=== PATIENT | female | born 1980 | race Caucasian/White ===

== ENCOUNTER 2016-12-10 15:18 | Emergency (ER) | payer OTHER ==
[2016-12-10 15:28] VITALS: BP 131/78; PULSE 82; RESP 15; TEMP 97.5; O2SAT 95
--- NOTE | 2016-12-10 15:52 | UCPHY ---
H & P Time Seen by Provider: 12/10/16 15:42 Patient Type: New HPI/ROS: CHIEF COMPLAINT: dizziness HISTORY OF PRESENT ILLNESS: Patient is a 36-year-old female with a history of anxiety and insomnia presents to urgent care with dizziness. The patient states she was recently in [facility] for alcohol detox. She started and abuse 9-10 days ago. She has been taking this regularly. Since starting the medication she has felt intermittently dizzy. She feels as though the room is spinning. It is worse when she moves her head. She has no tenderness or hearing loss. She denies headaches or neck pain. No recent trauma or fall. No fevers or chills. No focal weakness or numbness. Patient uses marijuana intermittently. She does not use alcohol currently. REVIEW OF SYSTEMS: My complete review of systems is negative except as mentioned in the HPI. Past Medical/Surgical History: Anxiety, insomnia Past surgical history: Denies Social history: The patient vapes." She uses THC intermittently. The recent detox from alcohol. Smoking Status: Current some day smoker Physical Exam: Vitals noted GENERAL: Well-appearing, in no acute distress, alert. HEENT: Eyes normal to inspection, PERRLA, extraocular movements intact, normal pharynx, no signs of dehydration. No nystagmus NECK: No thyromegaly, no lymphadenopathy, supple. RESPIRATORY: Clear to auscultation bilaterally, no rales, rhonchi or wheezing. CVS: Regular rate and rhythm, no rubs, murmurs, or gallops. ABDOMEN: Soft. SKIN: Normal color, no rash, warm, dry. No pallor. EXTREMITIES: Normal. NEURO/PSYCH: Higher functions: Alert and Oriented x3. Normal speech and cognition. Normal mood and affect. Cranial nerves: Normal as tested. Cerebellar: Normal as tested. Good finger to nose, good [id number], normal gait. Peripheral exam: Normal motor exam. Normal sensation. Normal reflexes. Constitutional: Initial Vital Signs Temperature (C) 36.4 C 12/10/16 15:22 Heart Rate 82 12/10/16 15:22 Respiratory Rate 15 12/10/16 15:22 Blood Pressure 131/78 H 12/10/16 15:22 O2 Sat (%) 95 12/10/16 15:22 O2 Delivery Mode Room Air Allergies/Adverse Reactions: lithium Allergy (Verified 12/10/16 15:28) Home Medications: Medication Instructions Recorded ANTABUSE 12/10/16 Clonidine 12/10/16 Fish Oil 12/10/16 Lexapro 12/10/16 Meclizine HCl [Meclizine HCl 25 mg 25 mg PO TID #11 tab 12/10/16 (RX,OTC)] Neurontin 12/10/16 Seroquel 12/10/16 Medical Decision Making ED Course/Re-evaluation: In urgent care discussed possible etiologies with the patient. I answered all her questions. The patient will continue her medications as directed. She will be given a prescription for meclizine. She is given warnings prior to leaving. She will return with worsening symptoms. Differential Diagnosis: My differential includes but is not limited to peripheral vertigo, central vertigo, malignancy, mass, dissection, aneurysm, medication reaction Departure - Departure Disposition: Home, Routine, Self-Care Clinical Impression: Dizziness Condition: Good Instructions: Dizziness (ED) Additional Instructions: Continue taking medications as directed. Your been prescribed meclizine to help with her dizziness. If you develop a headache, nausea, weakness, numbness , visual change or any other concerns return to the emergency department. Referrals: Allison Griffin DO [Primary Care Provider] - 3-4 days, if not improved Prescriptions: Meclizine HCl [Meclizine HCl 25 mg (RX,OTC)] 25 mg PO TID #11 tab - PQRS PQRS Measurement: NA
== END 2016-12-10 16:06 | disposition home or self-care (01) ==
LOC: CED 15:18
DX: R42 Dizziness and giddiness (principal); F41.9 Anxiety disorder, unspecified; G47.00 Insomnia, unspecified; F10.282 Alcohol dependence with alcohol-induced sleep disorder; F17.210 Nicotine dependence, cigarettes, uncomplicated
CPT/HCPCS: 99203-PO; G0463-PO